=== PATIENT | male | born 1945 | race Caucasian/White ===

== ENCOUNTER 2025-05-20 09:29 | Outpatient (RCR) | payer MEDICARE, SELFPAY ==
--- NOTE | 2025-05-20 10:45 | CTCCONSULT_ITS ---
Patient: FARIHA WALLACE : 1945 MR#: [id number] Page 3 of 4 CONSULTATION NOTE DATE OF CONSULTATION: 05/20/2025 NAME: FARIHA WALLACE ACCOUNT: [id number] : 1945 AGE: 79 REFERRING PHYSICIAN: Maggie Mueller MD PRIMARY PHYSICIAN: Maggie Mueller MD REASON FOR VISIT: Lymphoma ONCOLOGY HISTORY: DIAGNOSIS: New diagnosis of B-cell lymphoma DATE OF DIAGNOSIS: 04/16/2025 STAGE/TNM: Unknown TREATMENT HISTORY: Care?Plan Start?Date Cycle Day Intent HISTORY OF PRESENT ILLNESS: 79-year-old male Patient is here to establish care. Patient was seen at [facility] and underwent biopsy of the lymph node in the cervical area and was told that he has B-cell lymphoma. Patient have not had staging imaging. Denies any weight loss night sweats. Patient was taking MiraLAX and was having loose stools and since stopping he is having normal bowel movements. 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 Tobacco Use:?Denies - chewed tobacco -x 30yrs - quit age 43 ETOH?Use:?Socailly Drug?Note:?Denies Social?History?Note:?Lives?with? MEDICATIONS: 1. amlodipine - 5 mg 1 tab Daily 2. balsalazide - 750 mg 1 Capsule Three times a day 3. ibuprofen - 600 mg 1 tab As directed 4. irbesartan - 75 mg 1 tab Daily?Palabra Meds? Medications Last Reconciled by Heidy Do RN on 05/20/2025 ALLERGIES: rosuvastatin; atorvastatin REVIEW OF SYSTEMS: A complete 14-point review of systems was performed and is negative except as noted in interval history. PHYSICAL EXAMINATION: VITAL SIGNS: Temperature?98.4, B/P?146/80, Height?66?inches, Oxygen?Saturation?97% Weight?240?lbs PAIN: 0 - No pain ECOG Performance Status: 0 - Asymptomatic and fully active GENERAL APPEARANCE: Appears well, in no apparent distress, appropriately interactive. HEENT: Normocephalic, no temporal wasting, normal conjunctiva, no scleral icterus, normal hearing, lips without lesions, neck normal range of motion. CARDIOVASCULAR: Not assessed. PULMONARY: Normal respiratory effort, no respiratory distress or use of accessory muscles, speaking in full sentences, no tachypnea. EXTREMITIES: No pedal edema or cyanosis. SKIN: Normal skin appearance. NEUROLOGIC: Alert and oriented x4. PSHYCHIATRIC: Appropriate affect, mood normal, behavior normal, intact thought and speech. LABORATORY DATA: I have personally reviewed and interpreted each of the patient?s relevant lab tests, abnormal findings are below: Date ASSESSMENT/PLAN: B-cell lymphoma No s staging images to see extent of lymph nodes Will order PET CT scan to see involvement of lymphoma Bone marrow biopsy to stage patient Uric acid LDH CBC CMP flow cytometry Once patient has above imaging and labs will see him back to plan treatment Hepatitis panel ORDERS: Order # Description [id number] + Comprehensive Metabolic Panel - 12 + CBC with Auto Diff [id number] Initial PET/CT of Skull to Mid-Thigh [id number] Lactate Dehydrogenase (LDH) 5322312 Uric Acid, Serum [id number] MD Follow Up 3 Week [id number] Flowcytometry [id number] MD Follow Up 3 Week RETURN TO CLINIC: I reviewed the diagnosis, prognosis, and recommended treatment/procedure options with the patient (and/or their legal herbicide service sales representative), including the potential benefits, risks, side effects and alternative therapies. We also discussed the option of no treatment and the possibility of clinical trial participation, if applicable. All questions were addressed, and they demonstrated understanding. They provided informed consent to proceed with the proposed plan of care. BILLING AND COMPLIANCE: I reviewed external records from providers outside my specialty as summarized above. I spent a total of 50 minutes on this patient?s care on the day of their visit excluding time spent related to any billed procedures. This time includes time spent with the patient as well as time spent documenting in the medical record, reviewing patients records and tests, obtaining history, placing orders, communicating with other healthcare professionals, counseling the patient, family or caregiver, and/or care coordination for the diagnoses above. Electronically Signed by: Nahun Perez MD T: 10:43 AM CC: PCP: Maggie Mueller I Referring: Maggie Mueller I This document was completed utilizing speech recognition software. Grammatical errors, random word insertions, pronoun errors, and incomplete sentences are an occasional consequence of this system due to software limitations, ambient noise, and hardware issues. Any formal questions or concerns about the content, text or information contained within the body of this dictation should be directly addressed to the provider for clarification.
== END 2025-06-01 23:59 | disposition home or self-care (01) ==
LOC: SCTC 09:29
PROVIDERS: PCP Family Medicine; Referring Provider Family Medicine; Visit Provider Internal Medicine Hematology & Oncology
DX: C85.11 Unspecified B-cell lymphoma, lymph nodes of head, face, and neck (principal)
CPT/HCPCS: 36415; 80053; 80074; 83615; 84550; 85025; 99213; G0463

== ENCOUNTER → 2025-05-20 | Outpatient (CLI) | payer MEDICARE, SELFPAY ==
[2025-05-20 12:16] LABS: Basophils # (Auto) 0.0 Thou/mm3 (0.0-0.2); Basophils % (Auto) 1 % (0-2.5); Eosinophils # (Auto) 0.2 Thou/mm3 (0.0-0.5); Eosinophils % (Auto) 3 % (0-10); Hematocrit 42.4 % (41.0-53.0); Hemoglobin 13.9 g/dL (13.5-16.0); Immature Granulocytes Auto 0.04 Thou/mm3 (0.00-0.00); Lymphocytes # (Auto) 1.8 Thou/mm3 (1.0-4.8); Lymphocytes % (Auto) 26 % (10-50); Mean Corpuscular HGB Conc 32.8 g/dl (31.0-37.0); Mean Corpuscular Hemoglobin 31.8 pg (25.0-35.0); Mean Corpuscular Volume 97 fL (80-100); Monocytes # (Auto) 0.5 Thou/mm3 (0.0-0.8); Monocytes % (Auto) 7 % (0-12); Neutrophils # (Auto) 4.5 Thou/mm3 (1.8-7.7); Neutrophils % (Auto) 63 % (37-80); Nucleated Red Blood Cell # 0.00 Thou/mm3 (0.00-0.00); Nucleated Red Blood Cell % 0 /100 WBC (0); Platelet Count 280 Thou/mm3 (140-440); RDW Standard Deviation 43.5 fL (35.1-43.9); Red Blood Count 4.37 Miln/mm3 (4.50-5.90); White Blood Count 7.1 Thou/mm3 (3.8-10.6)
[2025-05-20 12:34] LABS: Alanine Aminotransferase 14 U/L (10-49); Albumin, Serum 4.6 gm/dL (3.4-4.8); Albumin/Globulin Ratio 1.9 (1.2-2.2); Alkaline Phosphatase 58 U/L (46-116); Anion Gap 11 (7-16); Aspartate Amino Transferase 22 U/L (0-34); BUN/Creatinine Ratio 15 Ratio (12-20); Bilirubin,Total 0.3 mg/dL (0.3-1.2); Blood Urea Nitrogen 15 mg/dL (9-23); Calcium 9.3 mg/dL (8.3-10.6); Calcium (Corrected) 9.3 mg/dL (8.5-10.1); Carbon Dioxide 27.8 mMol/L (20.0-31.0); Chloride 104 mMol/L (98-107); Creatinine (Component) 1.0 mg/dL (0.6-1.3); Globulin 2.4 gm/dL (2.3-3.5); Glucose 104 mg/dL (74-106); LDH (Lactate Dehydrogenase) 211 U/L (120-246); Osmolality,Calculated 285 (275-295); Potassium 4.4 mMol/L (3.4-5.1); Sodium 143 mMol/L (136-145); Total Protein 7.0 gm/dL (5.7-8.2); Uric Acid 4.9 mg/dL (3.7-9.2); eGFR > 60 See Note
[2025-05-20 13:03] LABS: Hepatitis A Antibody IgM Non Reactive (Non React); Hepatitis B Core Antibody IgM Non Reactive (Non React); Hepatitis B Surface Antigen Non Reactive (Non React); Hepatitis C Antibody Non Reactive (Non React)
== END | disposition home or self-care (01) ==
LOC: COPL 11:06 → SCTO 11:06
PROVIDERS: PCP Physician Assistant; Referring Provider Internal Medicine Hematology & Oncology; Visit Provider Internal Medicine Hematology & Oncology
DX: C85.11 Unspecified B-cell lymphoma, lymph nodes of head, face, and neck (principal)
CPT/HCPCS: 36415; 80053; 80074; 83615; 84550; 85025

== ENCOUNTER → 2025-05-21 | Outpatient (CLI) | payer MEDICARE, SELFPAY ==
[2025-05-21 07:19] LABS: Flow Cytometry* See Sep Rpt
[2025-05-21 08:30] LABS: Basophils # (Auto) 0.0 Thou/mm3 (0.0-0.2); Basophils % (Auto) 0 % (0-2.5); Eosinophils # (Auto) 0.2 Thou/mm3 (0.0-0.5); Eosinophils % (Auto) 3 % (0-10); Hematocrit 43.3 % (41.0-53.0); Hemoglobin 14.1 g/dL (13.5-16.0); Immature Granulocytes Auto 0.05 Thou/mm3 (0.00-0.00); Lymphocytes # (Auto) 1.6 Thou/mm3 (1.0-4.8); Lymphocytes % (Auto) 21 % (10-50); Mean Corpuscular HGB Conc 32.6 g/dl (31.0-37.0); Mean Corpuscular Hemoglobin 32.2 pg (25.0-35.0); Mean Corpuscular Volume 99 fL (80-100); Monocytes # (Auto) 0.6 Thou/mm3 (0.0-0.8); Monocytes % (Auto) 8 % (0-12); Neutrophils # (Auto) 5.3 Thou/mm3 (1.8-7.7); Neutrophils % (Auto) 68 % (37-80); Nucleated Red Blood Cell # 0.00 Thou/mm3 (0.00-0.00); Nucleated Red Blood Cell % 0 /100 WBC (0); Platelet Count 288 Thou/mm3 (140-440); RDW Standard Deviation 44.5 fL (35.1-43.9); Red Blood Count 4.38 Miln/mm3 (4.50-5.90); White Blood Count 7.8 Thou/mm3 (3.8-10.6)
== END | disposition home or self-care (01) ==
LOC: SCTO 07:04
PROVIDERS: Referring Provider Internal Medicine Hematology & Oncology; Visit Provider Internal Medicine Hematology & Oncology
DX: C85.11 Unspecified B-cell lymphoma, lymph nodes of head, face, and neck (principal)
CPT/HCPCS: 36415; 85025

== ENCOUNTER → 2025-06-10 | Outpatient (CLI) | payer MEDICARE, SELFPAY ==
--- NOTE | 2025-06-10 12:30 | XR_ITS ---
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 Imaging was performed on an integrated 16-slice PET/CT scanner, with scanning from the skull base to the mid thigh. Serum blood glucose at the time of the injection was measured 88 mg/dL. CT scanning was performed without oral or intravenous contrast material. FINDINGS: Head and Neck: Hypermetabolic 25 mm left lateral cervical lymph node image 50, more caudad left lateral hypermetabolic 23 mm lymph node adjacent to the left limb of the hyoid bone Chest: Weakly hypermetabolic 17 mm left lower lobe pulmonary nodule Abdomen and Pelvis: There is no avinash hypermetabolism in retroperitoneal or pelvic chains. The spleen is normal in size and FDG avidity. Musculoskeletal: Marrow uptake is within normal range. IMPRESSION: 25 mm, 23 mm hypermetabolic left lateral cervical soft tissue lymph nodes Weakly hypermetabolic 17 mm left lobe pulmonary nodule, recommend high-resolution CT chest without contrast follow-up
== END | disposition home or self-care (01) ==
LOC: CDIM 12:14
PROVIDERS: Referring Provider Internal Medicine Hematology & Oncology; Visit Provider Internal Medicine Hematology & Oncology
DX: R91.1 Solitary pulmonary nodule (principal); C83.01 Small cell B-cell lymphoma, lymph nodes of head, face, and neck
CPT/HCPCS: 78815; A9552

== ENCOUNTER 2025-06-18 07:35 | Outpatient (CLI) | payer MEDICARE, SELFPAY ==
[2025-06-17 09:36] LABS: Basophils # (Auto) 0.1 Thou/mm3 (0.0-0.2); Basophils % (Auto) 1 % (0-2.5); Eosinophils # (Auto) 0.3 Thou/mm3 (0.0-0.5); Eosinophils % (Auto) 4 % (0-10); Hematocrit 41.5 % (41.0-53.0); Hemoglobin 13.7 g/dL (13.5-16.0); Immature Granulocytes Auto 0.04 Thou/mm3 (0.00-0.00); Lymphocytes # (Auto) 1.6 Thou/mm3 (1.0-4.8); Lymphocytes % (Auto) 22 % (10-50); Mean Corpuscular HGB Conc 33.0 g/dl (31.0-37.0); Mean Corpuscular Hemoglobin 32.2 pg (25.0-35.0); Mean Corpuscular Volume 98 fL (80-100); Monocytes # (Auto) 0.6 Thou/mm3 (0.0-0.8); Monocytes % (Auto) 9 % (0-12); Neutrophils # (Auto) 4.7 Thou/mm3 (1.8-7.7); Neutrophils % (Auto) 65 % (37-80); Nucleated Red Blood Cell # 0.00 Thou/mm3 (0.00-0.00); Nucleated Red Blood Cell % 0 /100 WBC (0); Platelet Count 280 Thou/mm3 (140-440); RDW Standard Deviation 44.0 fL (35.1-43.9); Red Blood Count 4.25 Miln/mm3 (4.50-5.90); White Blood Count 7.2 Thou/mm3 (3.8-10.6)
[2025-06-17 09:50] LABS: INR 0.9 (0.9-1.3); Partial Thromboplastin Time 27.0 Seconds (22.0-36.0); Prothrombin Time 10.0 Seconds (9.0-12.2)
[2025-06-17 09:51] LABS: Blood Urea Nitrogen 15 mg/dL (9-23); Creatinine (Component) 0.9 mg/dL (0.6-1.3); eGFR > 60 See Note
[2025-06-18] VITALS (12 sets, daily range): BP systolic 120–152; BP diastolic 50–88; PULSE 52–67; RESP 16–25; TEMP 36.3–36.4; O2SAT 95–100; BMI 40.3
--- NOTE | 2025-06-18 08:30 | XR_ITS ---
Examination: CT-guided percutaneous bone marrow aspiration left posterior superior iliac crest CT-guided percutaneous bone biopsy deep left posterior superior iliac crest CT pelvis without intravenous contrast INDICATIONS: Diagnosis unspecified B-cell lymphoma Date and time of procedure: June 18, 2025, 0931 hours Informed consent provided. A timeout was completed verifying correct patient, procedure, site and positioning. Technique: Axial 3 mm sections were obtained for localization of the left posterior superior iliac crest Appropriate area is marked. The patient's site was prepped and draped in sterile fashion Maximal sterile barrier technique utilized, including hand hygiene Local anesthesia was obtained with 1% lidocaine. Low dose protocols were performed. One or more of the following dose reduction techniques were used; automated exposure control, adjustment of the mA and/or KV according to patient size, use of iterative reconstruction technique. Utilizing CT fluoroscopic guidance 14 Tong[place] bone biopsy needle placed at the left superior iliac crest 5 cc marrow aspirate and 5 cc bone core obtained specimens appear satisfactory Patient appears in stable condition during this procedure. At completion of the procedure, the patient is in satisfactory condition. Estimated blood loss 3 cc Complete pathology report to follow. Impression: Successful CT-guided percutaneous bone marrow aspiration left posterior superior iliac crest Successful CT-guided percutaneous bone biopsy deep left posterior superior iliac crest
[2025-06-18] MEDS: SODIUM CHLORIDE 0.9% 500 ML 500 ML 250 ML IV (08:45)
[2025-06-18 09:12] LABS: Flow Cytometry* See Sep Rpt
[2025-06-18] MEDS: fentaNYL CIT INJ 50 mCg/ML AMP 2ML 75 MCG IV (09:33)
== END 2025-06-18 11:10 | disposition home or self-care (01) ==
PROVIDERS: Radiology Diagnostic Radiology; Referring Provider Internal Medicine Hematology & Oncology; Visit Provider Internal Medicine Hematology & Oncology
DX: C85.10 Unspecified B-cell lymphoma, unspecified site (principal)
CPT/HCPCS: 20220; 36415; 77012; 82565; 84520; 85025; 85610; 85730; J3010; J7999